=== PATIENT | male | born 1960 | race Caucasian/White ===

== ENCOUNTER 2017-06-17 12:09 | Emergency (ER) | payer OTHER ==
[2017-06-17] MEDS ORDERED: ONDANSETRON 4 MG/2 ML VIAL IVPB ONE (12:16)
--- NOTE | 2017-06-17 12:16 | PDOC ---
History of Present Illness - General Chief Complaint: Nausea/Vomiting Stated Complaint: NAUSEA VOMITING DIARRHEA FOR 2 DAYS Time Seen by Provider: 06/17/17 12:16 - History of Present Illness Initial Comments: 06/17/17 13:42 Chief complaint: Nausea vomiting and diarrhea History of present illness: Multiple episodes of vomiting and diarrhea since Thursday. No blood. No melena. No abdominal pain or cramps. Ate unusual food on Thursday night which was brought by relatives from [facility]. Nothing was raw or undercooked. Taking small sips of Gatorade with occasional vomiting. Review of systems: Admits feeling feverish, but did not take his temperature. Denies lightheadedness, dizziness, unsteadiness of gait, other visual or focal neurologic symptoms, chest pain, shortness of breath, abdominal pain, urinary symptoms. Remainder systems reviewed and found to be negative Past medical history: Elevated cholesterol, depression. Borderline diabetes on diet control. No prior abdominal surgery. Medications: Zoloft and simvastatin Social history: , stable home and family, smokes 1 pack per day cigarettes for many years, no alcohol or nonprescription drugs. Active and without disability Family history: Reviewed and noncontributory including early coronary artery disease, GI disease, metabolic diseases including diabetes, and cancer Physical exam: Alert and oriented well-developed well-nourished no acute distress cheerful and cooperative Afebrile, vital signs normal No pallor or icterus. PERRLA, conjunctivae clear, ENT clear, mucous membranes moist Neck supple without bruit mass or nodes Chest clear to P&A S1 and S2 normal without murmur rub or gallop pulses full and symmetric no JVD or edema Abdomen nondistended, with normal bowel sounds. Soft without mass tenderness or organomegaly. No CVAT Extremities no CCE Skin clear, no rash, adequate turgor and wet mucous membranes Neurological intact Impression: Viral gastroenteritis versus foodborne illness. No abdominal pain or tenderness. Despite history, patient does not appear dehydrated and vital signs are normal Plan: Antiemetics, fluids, CBC and chemistries. Further treatment depending on results and response to therapy Past History - Past Medical History Allergies/Adverse Reactions: Allergies Allergy/AdvReac Type Severity Reaction Status Date / Time No Known Allergies Allergy Unverified 06/17/17 12:11 Home Medications: Ambulatory Orders Ondansetron [Zofran Odt -] 4 - 8 mg SL TID PRN #15 od.tablet 06/17/17 Sertraline HCl [Zoloft] 25 mg PO HS 06/17/17 Simvastatin [Zocor -] 20 mg PO HS 06/17/17 ED Treatment Course - LABORATORY CBC & Chemistry Diagram: 06/17/17 12:37 06/17/17 12:37 Medical Decision Making - Medical Decision Making 06/17/17 13:51 BUN is 10, creatinine 0.6, sodium 131, remainder of electrolytes normal. Glucose 156. Otherwise chemistries without significant abnormalities. CBC shows a normal white count, H&H on the high side, which may indicate some dehydration. Platelets normal Patient feels much better after fluids and Zofran. No further vomiting or diarrhea. Nausea has subsided. *DC/Admit/Observation/Transfer Diagnosis at time of Disposition: Viral gastroenteritis - Discharge Dispostion Disposition: HOME Condition at time of disposition: Improved Admit: No - Prescriptions Prescriptions: Ondansetron [Zofran Odt -] 4 - 8 mg SL TID PRN #15 od.tablet PRN Reason: Nausea And/Or Vomiting - Patient Instructions Printed Discharge Instructions: DI for Vomiting -- Adult, DI for Nausea -- Adult, DI for Diarrhea and Traveler's Diarrhea -- Adult
[2017-06-17] MEDS ORDERED: SODIUM CHLORIDE 1,000 ML IV STA (12:17)
[2017-06-17] MEDS ORDERED: ONDANSETRON 4 MG/2 ML VIAL ONE (12:28)
[2017-06-17 12:34] VITALS: BP 121/76; PULSE 80; TEMP 99.2; BMI 25.2
[2017-06-17 12:59] LABS: BASOPHIL 0.9 % (0-2.0); MCHC 34.8 g/dl (32.0-35.9)
[2017-06-17 13:02] LABS: MCH 30.4 pg (25.7-33.7); MEAN CELL VOLUME 87.4 fl (80-96); MEAN PLT VOLUME 9.1 fl (7.5-11.1); NEUTROPHILS 68.7 % (42.8-82.8); PLATELET COUNT 193 K/MM3 (134-434); RDW 12.3 % (11.9-15.9); WHITE BLOOD COUNT 8.2 K/mm3 (4.0-10.8)
[2017-06-17 13:16] LABS: ALBUMIN 3.8 g/dl (3.5-5.0); ALK PHOS 75 U/L (32-92); ANION GAP 7 (8-16); BILIRUBIN,TOTAL 0.9 mg/dl (0.2-1.0); CO2 22 mmol/L (22-28); CREATININE 0.6 mg/dl (0.6-1.3); GLUCOSE,RANDOM 156 mg/dl (74-106); SGOT/AST 22 U/L (10-42); SGPT/ALT 23 U/L (10-40); TOT PROT 7.4 g/dl (6.4-8.3)
[2017-06-17 14:12] LABS: URINE APPEARANCE Clear; URINE BILIRUBIN Negative (NEGATIVE); URINE GLUCOSE (UA) Negative (NEGATIVE); URINE KETONE Negative (NEGATIVE); URINE LEUK ESTERASE Negative (NEGATIVE); URINE NITRITE Negative (NEGATIVE); URINE PROTEIN Negative (NEGATIVE); URINE UROBILINOGEN 0.2 (0.2-1.0)
[2017-06-17 14:17] LABS: URINE BLOOD 1+ (NEGATIVE); URINE COLOR YELLOW; URINE WBC 0-3 /hpf (3-5)
[2017-06-17 14:18] LABS: URINE BACTERIA FEW /hpf (NEGATIVE)
== END 2017-06-17 14:33 | disposition home or self-care (01) ==
LOC: FER 12:09
PROC: 3E033GC Introduction of Other Therapeutic Substance into Peripheral Vein, Percutaneous Approach (ICD-10-PCS; principal; 2017-06-17)
PROC: 3E0337Z Introduction of Electrolytic and Water Balance Substance into Peripheral Vein, Percutaneous Approach (ICD-10-PCS; 2017-06-17)
DX: A08.4 Viral intestinal infection, unspecified (principal)
CPT/HCPCS: 36415; 80053; 81003; 81015; 83690; 85025; 99283-25